=== PATIENT | female | born 1985 | race Two or more races ===

== ENCOUNTER 2016-11-10 13:26 | Emergency (ER) | payer SELFPAY ==
[~2016-11-10] VITALS: Ht 160 cm; Wt 65.8 kg
[2016-11-10 13:55] VITALS: BP 134/68
== END 2016-11-10 14:20 | disposition home or self-care (01) ==
LOC: ER 13:32
DX: L25.9 Unspecified contact dermatitis, unspecified cause (principal)

== ENCOUNTER 2016-12-19 16:18 | Emergency (ER) | payer SELFPAY ==
[~2016-12-19] VITALS: Ht 160 cm; Wt 63.5 kg
[2016-12-19 16:27] VITALS: BP 121/69
== END 2016-12-19 17:46 | disposition home or self-care (01) ==
LOC: ER 16:23
DX: J02.9 Acute pharyngitis, unspecified (principal)